=== PATIENT | female | born 1940 | race Caucasian/White ===

== ENCOUNTER → 2025-02-08 | Outpatient (CLI) | payer MEDICARE ==
[~2025-02-08] MED LIST: ERGO500029; FOLI1TAB11; INFL10VL IV; MECL-86; METH2.5T48; METO1TAB7; PRAV20TA78
== END ==
LOC: M PLARAD 11:40
PROVIDERS: ATTEND Student in an Organized Health Care Education/Training Program
DX: C90.00 Multiple myeloma not having achieved remission (principal)
CPT/HCPCS: 78816; A9552